=== PATIENT | male | born 1970 | race Caucasian/White ===

== ENCOUNTER 2016-12-30 05:52 | Day surgery (SDC) | payer MEDICAID ==
[~2016-12-30] VITALS: Ht 182.9 cm; Wt 117.9 kg
[2016-12-30 06:14] LABS: BASOPHILS 0.8 % (0-2); EOSINOPHILS 8.8 % (0-7); HEMATOCRIT 42.8 % (42.0-54.0); HEMOGLOBIN 14.9 g/dL (13.5-17.5); IMMATURE GRANULOCYTES 0.3 % (0-5); LYMPHOCYTES 39.5 % (15-50); MCH 31.2 pg (26.0-34.0); MCHC 34.8 g/dL (31.0-37.0); MCV 89.7 fL (80.0-100.0); MEAN PLATELET VOLUME 10.1 fL (7.4-10.4); MONOCYTES 9.3 % (2-11); NEUTROPHILS 41.3 % (40-80); PLATELET COUNT 193 10x3/uL (130-400); RBC 4.77 10x6/uL (4.20-6.10); RDW 12.6 % (11.5-14.5); WBC 3.7 10x3/uL (4.8-10.8)
[2016-12-30 06:22] LABS: CALC OSMOLALITY 282 mosm/kg (275-300); CALCIUM 8.8 mg/dL (8.5-10.1); CARBON DIOXIDE 28.9 mmol/L (21.0-32.0); CHLORIDE - SERUM 102 mmol/L (98-107); CREATININE - SERUM 0.9 mg/dL (0.6-1.3); GLUCOSE 169 mg/dL (74-106); SODIUM 139 mmol/L (136-145); UREA NITROGEN 14 mg/dL (7-18); eGFR NON AFRICAN AMERICAN > 90 mL/min (90-120)
[2016-12-30] MEDS ORDERED: LIPITOR20 MG PO (08:38)
[2016-12-30] MEDS ORDERED: GLUCOPHAGE500 MG PO (08:38)
[2016-12-30 08:40] VITALS: BP 124/74; Ht 182.9 cm; Wt 117.9 kg
[2016-12-30] MEDS ORDERED: HYDROCODONE-APA1 TAB PO (10:07)
--- NOTE | 2016-12-30 15:08 | NUR ---
1250 STATES PAIN LEVEL IS NOW 0/10. IV DC'ED WITH CATH INTACT WITH 750ML LTC. DRESSING. Gurmeet CANTU R.N. 1305 DRESSED. GIVEN DISCHARGE INFORMATION INCLUDING: RX: NORCO10/325MG, MED REC, RTC APPT., D/C INSTRUCTIONS FOR HERNIA REPAIR, & [facility] OP D/C INSTRUCTIONS. PT VOICED UNDERSTANDING. TO PRIVATE CAR PER WHEELCHAIR BY THIS NURSE. HOME WITH . Gurmeet CANTU R.N.
--- NOTE | 2016-12-30 16:32 | OP ---
PATIENT NAME: SHAMIR COTE MEDICAL RECORD: [id number] :68 LOCATION:D.OPS ADMISSION DATE: SURGEON: KARISSA ODOM MD DATE OF OPERATION: 12/30/2016 PREOPERATIVE DIAGNOSES: 1. Umbilical hernia. 2. Hypercholesterolemia. 3. 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 POSTOPERATIVE DIAGNOSES: 1. Umbilical hernia. 2. Hypercholesterolemia. 3. 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 PROCEDURE: Umbilical hernia repair with 4.6 cm Proceed mesh. SURGEON: Karissa Odom MD REPORT OF PROCEDURE: The patient's abdomen was prepped and draped in sterile fashion. A semicircular incision was made on the inferior aspect of the umbilicus. Electrocautery was used to come through the superior aspect of the hernia sac. The hernia defect was about 2.5 cm in greatest diameter. We removed the hernia sac down to the fascial edges. We cleared off the fascial edges above and below. A 4.6 cm Proceed mesh was then inserted and was sutured down on all 4 sides using interrupted Prolenes. The mesh appeared to lie in good position. The wound was then irrigated out thoroughly with normal saline. We then closed the fascia transversely overlying the mesh using running 0 Vicryl. The umbilicus was then tacked down to the fascia using an interrupted 3-0 Vicryl. The subcutaneous tissues were reapproximated with interrupted 3-0 Vicryl and the skin was closed with running subcutaneous 5-0 Monocryl. We then infused 10 mL of 0.25% Marcaine plain into the surrounding tissues and the wound was dressed appropriately. COMPLICATIONS: None. CONDITION: Stable. ANESTHESIA: General endotracheal and local. BLOOD LOSS: Minimal. TRANSINT:[id number] Voice Confirmation ID: [id number] DOCUMENT ID: [id number] KARISSA ODOM MD at 1632 CC: MILE VINCENT DO [id number] DICTATION DATE: 12/30/16 1011 [employer] OPENER VERIFIER PACKER: 12/30/16 1113 [facility] 12/30/16 [id number] [place] [address]
== END 2016-12-30 13:05 | disposition home or self-care (01) ==
LOC: D.OPS 05:52 → D.PAN 08:30 → D.OPS 08:30
PROVIDERS: Surgery
DX: K42.9 Umbilical hernia without obstruction or gangrene (principal); E11.9 Type 2 diabetes mellitus without complications; Z95.2 Presence of prosthetic heart valve; Z01.812 Encounter for preprocedural laboratory examination

== ENCOUNTER → 2017-10-13 08:51 | Outpatient (CLI) | payer MEDICAID ==
[2016-12-30 08:40] VITALS: BMI 35.3
[~2017-10-13 08:51] MED LIST: GLUCOPHAGE500 MG PO; HYDROCODONE-APA1 TAB PO; LIPITOR20 MG PO
== END | disposition home or self-care (01) ==
LOC: D.MRI 09-28 14:30
DX: M25.561 Pain in right knee (principal)